=== PATIENT | male | born 2000 | race Caucasian/White ===

== ENCOUNTER 2024-04-05 14:08 | Outpatient (AMB) | payer BC, SELFPAY ==
--- NOTE | 2024-04-05 14:13 | MHC.PC.OV ---
Vital Signs 04/05/24 14:16 Height 5 ft 10 in Weight 187 lb 8 oz BMI 26.9 BP 100/68 Blood Pressure Location Lt brachial Position Sitting Respiration 12 Pulse 74 Pulse Source Pulse Oximeter Pulse Oximetry (%) 96 Oxygen Delivery Method Room Air Intake Visit Reasons: & CPE, Establish Care Composition Instructor Required: No Accompanied by: Self / Same As Patient Allergies No Known Allergies Allergy (Verified 04/05/24 14:20) Tobacco use date assessed: 04/05/24 Dental Screening Dental Screen Date: 04/05/24 Did you have a dental visit in the last 12 months?: Yes Did you have a dental problem in the last 6 months where you did not have access to dental care?: No Was dental information given to patient?: Patient has dentist HPI HPI Comments History of Present Illness Details The patient is a 24 year old male with a past medical history of anxiety & depression presenting to [facility] and for physical exam Anxiety & depression: Follows with [facility] in [place]. Telehealth. Feels stable on buproprion and escitalopram HSV: Had outbreak of genital herpes in October- incidence. Seen in urgent care. Was acutely treated with antivirals at the time. Has not had another outbreak but would like to try suppressive therapy to avoid ROS CONSTITUTIONAL: Denies weight loss, fever and chills. HEENT: Denies changes in vision and hearing. RESPIRATORY: Denies SOB and cough. CV: Denies palpitations and CP GI: Denies abdominal pain, nausea, vomiting and diarrhea. : Denies dysuria and urinary frequency. MSK: Denies new myalgia and joint pain. SKIN: Denies rash and pruritus. NEUROLOGICAL: Denies headache PSYCHIATRIC: Denies recent changes in mood. PHYSICAL EXAM: GENERAL: Alert and oriented x 3. NAD EYES: EOMI. Anicteric. HENT: Moist mucous membranes. No scleral icterus. No cervical lymphadenopathy. LUNGS: Clear to auscultation bilaterally. CARDIOVASCULAR: Regular rate and rhythm. No murmur. No JVD. ABDOMEN: Soft, non-tender +bs EXTREMITIES: No edema. Non-tender. SKIN: No rashes or lesions. Warm. NEUROLOGIC: No focal neurological deficits. CN II-XII grossly intact PSYCHIATRIC: Cooperative. Appropriate mood and affect [facility] Medical History Anxiety Depression Surgical History No pertinent past surgical history Social History Household Members: None Housing: Apartment Are you a primary daytime caregiver to a significant other at home: No Do you presently have visiting nurse or other home services: No 75 years or older and lives alone: No Alcohol intake: current Patient Tobacco Use Status: Never used Tobacco e-Cigarette/Vaping Use: Never Used service: No Current occupational status: employed Current occupation: [employer] Cognitive needs: No Hearing needs: No Vision needs: No Questionnaire PHQ-9 Over the last 2 weeks, how often have you been bothered by any of the following problems? 1. Little interest or pleasure in doing things: not at all 2. Feeling down, depressed, or hopeless: not at all 3. Trouble falling or staying asleep, or sleeping too much: not at all 4. Feeling tired or having little energy: not at all 5. Poor appetite or overeating: not at all 6. Feeling bad about yourself - or that you are a failure or have let yourself or your family down: not at all 7. Trouble concentrating on things, such as reading the newspaper or watching television: not at all 8. Moving or speaking so slowly that other people could have noticed. Or the opposite - being so fidgety or restless that you have been moving around a lot more than usual: not at all 9. Thoughts that you would be better off or of hurting yourself in some way: not at all Total score: 0 Depression Screening Interpretation: Negative (neg) Depression Screening Done: Yes 46808 - PHQ-9 Billing: Yes Source: Developed by Drs. Hugh Pena, Jessenia Weber, Scooter Garner and colleagues, with an educational rudy from [employer]. Thrive Questionnaire Date Thrive assessed: 04/05/24 I am a: Patient What is your living situation today?: I have a steady place to live Within the past 12 months, did the food you bought not last and you didn't have the money to get more?: Never true Within the past 12 months, did you worry whether your food would run out before you got money to buy more?: Never true Do you have trouble paying for medicines?: No Do you have trouble getting transportation to medical appointments?: No Do you have trouble paying your heating and electricity bill?: No Do you have trouble taking care of your child, family member or friend?: No Do you have trouble with day-to-day activities such as bathing, preparing meals, shopping, managing finances, etc.?: No Are you currently unemployed and looking for a job?: No Are you interested in more education?: Yes Please select the resources that you would like help with: None Currently or been in a relationship where the following occur: No concerns reported THRIVE Score: 0 AUDIT C Alcohol Use Questionnaire (AUDIT-C) 1. How often do you have a drink containing alcohol?: 2-3 times a week 2. How many drinks containing alcohol do you have on a typical day when you are drinking?: 5 or 6 3. How often do you have six or more drinks on one occasion?: Less than monthly Total Score: 6 ADRIÁN-7 AMB Questionnaire ADRIÁN-7 Date ADRIÁN - 7 assessed: 04/05/24 Feeling nervous, anxious, or on edge: 0 = Not at all Not being able to stop or control worryin = Not at all Worrying too much about different things: 0 = Not at all Trouble relaxin = Not at all Being so restless that it is hard to sit still: 0 = Not at all Becoming easily annoyed or irritable: 0 = Not at all Feeling afraid as if something awful might happen: 0 = Not at all Total ADRIÁN-7 score (0-4 normal; 5-9 mild; 10-14 moderate; 15-21 severe): 0 Source: Developed by Drs. Hugh Pena, Jessenia Weber, Scooter Garner and colleagues, with an educational rudy from [employer]. ADRIÁN-7 Assessment Billing ADRIÁN-7 Assessment Tool: ADRIÁN-7 Assessment 17616 Physical exam (Primary Care) Vital Signs: Last Vital Signs Pulse 74 04/05/24 14:16 Resp 12 04/05/24 14:16 BP 100/68 04/05/24 14:16 Pulse Ox 96 04/05/24 14:16 Oxygen Delivery Method Room Air 04/05/24 14:16 BMI result Body Mass Index 26.9 Tobacco/Smoking Status: Tobacco use Status Tobacco use date assessed 04/05/24 04/05/24 14:22 Patient Tobacco Use Status Never used Tobacco 04/05/24 14:23 e-Cigarette/Vaping Use Never Used 04/05/24 14:23 PHQ-9: PHQ-9 Score PHQ-9: Total score 0 04/08/24 09:18 Depression Screening Interpretation: Negative (neg) Thrive Assessment: Date of Thrive Assessment Date Thrive assessed 04/05/24 04/05/24 14:14 Currently or been in a relationship where the following occur: No concerns reported Immunizations Boostrix Tdap 2.5 Lf unit-8 mcg-5 Lf/0.5 mL intramuscular syringe Performing Provider: Claire Carlos MD Performing Location: [facility] Administered by: Kellen Wong CMA on 04/05/24 15:51 Dose Route Admin Location Dispensed Lot Number Expiration Date NDC Public Health Representative 0.5 mL IM Left Deltoid 0.5 mL [id number] 04/24/26 89818-650-98 [employer]ARTIS VIS Given Date VIS Provided VIS Publication Date 04/05/24 Single Vaccine 21 Eligibility Eligibility Date Funding Source Not [facility] Eligible 04/05/24 Private Assessment and Plan Assessment & Plan (1) Physical exam: Code(s): Z00.00 - Encounter for general adult medical examination without abnormal findings Plan: 24 year old male presenting to [facility] care. Past medical, surgical, social and family history reviewed. Preventive measures for age discussed Tdap today (2) Major depressive disorder, recurrent, in partial remission: Code(s): F33.41 - Major depressive disorder, recurrent, in partial remission Plan: stable on currrent medications which are refilled (3) Anxiety: Code(s): F41.9 - Anxiety disorder, unspecified Orders: Orders Comprehensive Met. Panel 04/05/24 F33.41 - Major depressive disorder, recurrent, in partial remission, F41.9 - Anxiety disorder, unspecified, Z00.00 - Encounter for general adult medical examination without abnormal findings, Z13.0 - Encounter for screening for diseases of the blood and blood-forming organs and certain disorders involving the immune mechanism, Z13.228 - Encounter for screening for other metabolic disorders TSH reflex Free T4 04/05/24 F33.41 - Major depressive disorder, recurrent, in partial remission, F41.9 - Anxiety disorder, unspecified, Z00.00 - Encounter for general adult medical examination without abnormal findings, Z13.0 - Encounter for screening for diseases of the blood and blood-forming organs and certain disorders involving the immune mechanism, Z13.228 - Encounter for screening for other metabolic disorders TDaP Immunization 04/05/24 Z23 - Encounter for immunization Complete Blood Count Auto Diff 04/05/24 F33.41 - Major depressive disorder, recurrent, in partial remission, F41.9 - Anxiety disorder, unspecified, Z00.00 - Encounter for general adult medical examination without abnormal findings, Z13.0 - Encounter for screening for diseases of the blood and blood-forming organs and certain disorders involving the immune mechanism, Z13.228 - Encounter for screening for other metabolic disorders Lipid Panel 04/05/24 F33.41 - Major depressive disorder, recurrent, in partial remission, F41.9 - Anxiety disorder, unspecified, Z00.00 - Encounter for general adult medical examination without abnormal findings, Z13.0 - Encounter for screening for diseases of the blood and blood-forming organs and certain disorders involving the immune mechanism, Z13.228 - Encounter for screening for other metabolic disorders Hemoglobin A1c 04/05/24 F33.41 - Major depressive disorder, recurrent, in partial remission, F41.9 - Anxiety disorder, unspecified, Z00.00 - Encounter for general adult medical examination without abnormal findings, Z13.0 - Encounter for screening for diseases of the blood and blood-forming organs and certain disorders involving the immune mechanism, Z13.228 - Encounter for screening for other metabolic disorders Medications: New bupropion HCl SR 150 mg PO BID 180 tabs 3RF 90 days valacyclovir (Valtrex) 500 mg PO DAILY 90 tabs 3RF 90 days escitalopram oxalate 10 mg PO DAILY 90 tabs 3RF 90 days Coding Level of Care Code New Pt Prev Care 18-39yr(02067 Diagnoses Physical exam Z00.00 Major depressive disorder, recurrent, in partial remission F33.41 Anxiety F41.9 Additional Codes ADRIÁN-7 Assessment Billing - ADRIÁN-7 Assessment Tool: ADRIÁN-7 Assessment 99277 ([id number])
[2024-04-05 14:16] VITALS: BP 100/68; PULSE 74; RESP 12; O2SAT 96; BMI 26.9
== END 2024-04-05 15:33 | disposition home or self-care (01) ==
PROVIDERS: PCP Internal Medicine; Visit Provider Internal Medicine
DX: Z00.00 Encounter for general adult medical examination without abnormal findings (principal); F33.41 Major depressive disorder, recurrent, in partial remission; F41.9 Anxiety disorder, unspecified

== ENCOUNTER → 2024-04-05 14:08 | Outpatient (BNVA) | payer BC, SELFPAY | PROVIDERS: PCP Internal Medicine; Visit Provider Internal Medicine | DX: Z00.00 Encounter for general adult medical examination without abnormal findings (principal); F33.41 Major depressive disorder, recurrent, in partial remission; F41.9 Anxiety disorder, unspecified; Z23 Encounter for immunization | CPT/HCPCS: 90471; 90715; 96127 ==

== ENCOUNTER 2024-07-19 15:26 | Outpatient (AMB) | payer BC, SELFPAY ==
--- NOTE | 2024-07-19 15:44 | MHC.PC.OV ---
Intake Visit Reasons: go over medications Allergies No Known Allergies Allergy (Verified 04/05/24 14:20) Medication List - Last Reconciled 07/19/24 by Claire Carlos MD bupropion HCl SR 150 mg PO BID 90 days valacyclovir (Valtrex) 500 mg PO DAILY 90 days Tobacco use date assessed: 04/05/24 Dental Screening Dental Screen Date: 04/05/24 HPI HPI Comments History of Present Illness Details The patient is a 24 year old male with a past medical history of anxiety & depression presenting for follow up Anxiety & depression: Was following with psych but retired/left the practice. Was on buproprion and escitalopram, then lexapro transitioned to prozac. Needs pcp to take over psych meds. Feeling stable HSV: Had outbreak of genital herpes in October-. Seen in urgent care. Doing well on suppressive therapy ROS CONSTITUTIONAL: Denies weight loss, fever and chills. HEENT: Denies changes in vision and hearing. RESPIRATORY: Denies SOB and cough. CV: Denies palpitations and CP GI: Denies abdominal pain, nausea, vomiting and diarrhea. : Denies dysuria and urinary frequency. MSK: Denies new myalgia and joint pain. SKIN: Denies rash and pruritus. NEUROLOGICAL: Denies headache PSYCHIATRIC: Denies recent changes in mood. PHYSICAL EXAM: [facility] Medical History Anxiety Depression Surgical History No pertinent past surgical history Social History Household Members: None Housing: Apartment Are you a primary restorative care technician to a significant other at home: No Do you presently have visiting nurse or other home services: No 75 years or older and lives alone: No Alcohol intake: current Patient Tobacco Use Status: Never used Tobacco e-Cigarette/Vaping Use: Never Used service: No Current occupational status: employed Current occupation: [employer] Cognitive needs: No Hearing needs: No Vision needs: No Questionnaire Thrive Questionnaire Date Thrive assessed: 04/03/24 I am a: Patient What is your living situation today?: I have a steady place to live Within the past 12 months, did the food you bought not last and you didn't have the money to get more?: Never true Within the past 12 months, did you worry whether your food would run out before you got money to buy more?: Never true Do you have trouble paying for medicines?: No Do you have trouble getting transportation to medical appointments?: No Do you have trouble paying your heating and electricity bill?: No Do you have trouble taking care of your child, family member or friend?: No Do you have trouble with day-to-day activities such as bathing, preparing meals, shopping, managing finances, etc.?: No Are you currently unemployed and looking for a job?: No Are you interested in more education?: Yes Please select the resources that you would like help with: None Currently or been in a relationship where the following occur: No concerns reported THRIVE Score: 0 AUDIT C Alcohol Use Questionnaire (AUDIT-C) 2. How many drinks containing alcohol do you have on a typical day when you are drinking?: 1 or 2 3. How often do you have six or more drinks on one occasion?: Never Total Score: 0 ADRIÁN-7 AMB Questionnaire ADRIÁN-7 Date ADRIÁN - 7 assessed: 04/05/24 Source: Developed by Drs. Hugh Pena, Jessenia Weber, Scooter Garner and colleagues, with an educational rudy from [employer] Physical exam (Primary Care) Tobacco/Smoking Status: Tobacco use Status Tobacco use date assessed 04/05/24 07/19/24 15:46 Patient Tobacco Use Status Never used Tobacco 07/19/24 15:46 e-Cigarette/Vaping Use Never Used 07/19/24 15:46 Thrive Assessment: Date of Thrive Assessment Date Thrive assessed 04/03/24 07/19/24 15:46 Currently or been in a relationship where the following occur: No concerns reported Telehealth Telehealth Telehealth Platform: [facility] Location of provider rendering services: practice address Location of patient: address on file Patient Identification confirmed using: Name, : Yes Telehealth method: voice only Patient verbally consented to treatment: Yes Patient verbally consented to billing insurance company: Yes Patient informed of any privacy concerns related to visit: Yes Minutes spent on Phone/Video with Pt.: 25 Coding Level of Care Code Tele Est Pt Level 3 (82974) Diagnoses Major depressive disorder, recurrent, in partial remission F33.41 Assessment & Plan Assessment & Plan (1) Major depressive disorder, recurrent, in partial remission: Code(s): F33.41 - Major depressive disorder, recurrent, in partial remission Category: Medical Plan: Stable on prozac and wellbutrin-will take over prescriptions Medications: New fluoxetine 20 mg PO DAILY 90 caps 3RF Refilled bupropion HCl SR 150 mg PO BID 180 tabs 3RF 90 days Discontinued escitalopram oxalate Discontinued Reason: Doctor's Order 10 mg PO DAILY 90 days 90 tabs 3RF
== END 2024-07-19 16:44 | disposition home or self-care (01) ==
LOC: HO.HMCFM 15:26
PROVIDERS: PCP Internal Medicine; Visit Provider Internal Medicine
DX: F33.41 Major depressive disorder, recurrent, in partial remission (principal)

== ENCOUNTER → 2024-07-19 15:26 | Outpatient (BNVA) | payer BC, SELFPAY | PROVIDERS: PCP Internal Medicine; Visit Provider Internal Medicine ==